=== PATIENT | female | born 1965 | race Hispanic/Latino ===

== ENCOUNTER 2017-04-12 05:56 | Inpatient (IN) | payer OTHER ==
[2017-04-03 09:27] VITALS: BMI 27.4
[2017-04-12] MEDS ORDERED: Sodium Chloride 0.9% 20 ML IV ONE (07:27)
[2017-04-12] MEDS ORDERED: Propofol 10 mg/ml Inj (20 ML) ONE (07:33)
[2017-04-12] MEDS ORDERED: Midazolam 2 MG/2 ML VIAL ONE (07:33)
[2017-04-12] MEDS ORDERED: Bupivacaine 0.5%/Epi 1:200,000 (10 ML SOL) IJ ONE (07:45)
[2017-04-12] MEDS: Bupivacaine-Epi 0.5%-1:200,000 PF Inj IJ ONE ×2 (08:48→10:00)
[2017-04-12] MEDS ORDERED: Clindamycin 600mg/50ml NS 600 MG/50 ML BAG IVPB ONE (09:30)
[2017-04-12] MEDS ORDERED: Rocuronium 10 mg/ml (5 ml) ONE (10:18)
[2017-04-12] MEDS ORDERED: Dexamethasone 4 mg/1 ml ONE (10:38)
[2017-04-12] MEDS ORDERED: Neostigmine Methylsulfate 3mg/3ml Syringe IV ONE (12:58)
[2017-04-12] MEDS ORDERED: Clindamycin 2% Vaginal Cream(40 gm) ONE (13:04)
[2017-04-12] MEDS ORDERED: Morphine 4 MG/ML VIAL IVP PRN (13:22)
[2017-04-12] MEDS: HYDROmorphone 0.5 mg/0.5 ml ISec IVP PRN ×7 (13:26→14:11)
--- NOTE | 2017-04-12 13:30 | PCM.SURG1 ---
Surgeon's Initial Post Op Note - Surgeon's Notes Surgeon: Roselyn Hardy MD Broker Assistant: Thania HERNANDEZ Type of Anesthesia: General Endo, Local Pre-Operative Diagnosis: Symptomatic prolapse uterus. Symptomatic fibroid uterus. Chronic pelvic pain. Urinary incontinence Operative Findings: Enlarged fibroid uterus. Adherent left tube and ovary to pelvic side wall. Stage III uterine prolapse. Normal bladder anatomy, ureters efluxing urine freely Post-Operative Diagnosis: Symptomatic prolapse uterus. Symptomatic fibroid uterus. Chronic pelvic pain. Urinary incontinence Operation Performed: Total robotic hysterectomy Bilateral salpingectomy. Sacrocolpopexy with Mesh. Lysis of adhesions. Stenting of urerters with Icygreen. Cystoscopy diagnostic Specimen/Specimens Removed: uterus, cervix and tubes Estimated Blood Loss: EBL {In ML}: 20 Blood Products Given: N/A Drains Used: No Drains Post-Op Condition: Good Date of Surgery/Procedure: 04/12/17 Time of Surgery/Procedure: 13:31
--- NOTE | 2017-04-12 13:35 | PCM.OP ---
Operative Report - Operative Report Date of Surgery/Procedure: 04/12/17 Time of Surgery/Procedure: 13:32 Surgeon: Roselyn Yuan MD Supplemental Manager: Thania HERNANDEZ Anesthesia/Sedation: Gen with ET tube Pre-Operative Diagnosis: chronic pelvic pain. Symtomatic prolapse uterus. Fibroid uterus. Urinary incontinence Post-Operative Diagnosis: chronic pelvic pain. Symtomatic prolapse uterus. Fibroid uterus. Urinary incontinence. Stage III uterine propase. Pelvic adhesive disaease Indication for Surgery: worsening pelvic pain. worseing prolpase uterus and urinary incontinence Operative Findings: Bulky enlarged fibroid uterus. Stage III uterine prolpase. Urinary incontinence Procedure/Operation Description: Total Robotic hysrterectomy Bilateral salpingectomy. Sacrocolpopexy with mesh insertion. enterolysis and lysis of adhesions. Diagnostic cystosocpy. DESCRIPTION OF OPERATION. This is a 51 years old female with symptomatic complete uterine prolapse, enlarged fibroid uterus, cystocele, rectocele and urinary incontinence. The patient completed an extensive preoperative workup, which included an ultrasound , as well as a Pap smear, chemistry and hematology studies. The patient reported these symptoms and problems as debilitating, and adversely affecting her quality of life. The patient reported this advanced uterine prolapse as debilitating and limiting her daily activities. Following a period of failed conservative management, and patient decision was made to proceed with a more invasive approach to address the above noted problems. A decision was finally made to proceed with a total robotic assisted hysterectomy, bilateral salpingectomy, and vaginal vault suspension in the form of sacrocolpopexy with polypropylene mesh. A detailed description of this robotic procedure was given to the patient, all risks and benefits of the surgical modality was reviewed, printed material was also given to the patient regarding robotic surgery. After a detailed discussion about the pros and cons of using polypropylene mesh graft for sacrocolpopexy, all benefits and risks were reviewed including but not limited to the risk of infection, mesh erosion / extrusion, chronic pain and dyspareunia. In addition, the FDA warning about mesh utilization for prolapse and incontinence surgery was reviewed in details, and specific written consent was obtained. The patient elected to proceed with a sacrocolpopexy today fully understanding the risk associated with utilizing mesh material. Other alternatives were also offered to the patient, she elected to proceed with a mesh sacrocolpopexy despite associated risks. The patient fully understood all the risks and benefits and elected to proceed with this proposed procedure. After proper consent was obtained from the patient was taken to the operating room, proper patient identification was completed. She was placed in dorsal lithotomy position; general anesthesia was induced without difficulty. Her legs were placed in adjustable Sal stirrups. Careful attention was placed to avoid hyperreflexion or hyper-rotation of the lower extremities at the hip or the knee joints. She was prepped and draped appropriately for robotic assisted hysterectomy and sacrocolpopexy. Bernstein catheter was inserted under sterile conditions. A weighted speculum was placed in the vagina, anterior lip of cervix was grasped with a tenaculum, and a V-care uterine manipulator was inserted through the cervix and secured. The weighted speculum and tenaculum were removed from the patient's vagina and attention was turned to the patient's abdomen. Local anesthetic solutions of 0.25% Marcaine with epinephrine were utilized to infiltrate the skin prior to all abdominal skin incisions. A total of 15 mL of 0.25% Marcaine was utilized throughout the procedure. While tenting the abdominal wall up, a Veress needle was inserted at a 45 degree angle. With CO2 insufflation, there was a drop in intraperitoneal pressure confirming correct placement. Insufflation was carried out to approximately 3 liters. A blunt robotic trocar and sleeve was introduced through the camera port in the midline, approximately 3 cm above the umbilicus. Then, using a 30-degree lens robotic scope, initial survey of the patient's abdomen revealed a bulky fibroid uterus and normal-appearing ovaries and severely adherent and distorted fallopian tubes. Multiple loops of bowel adherent to the pelvic sidewall and anterior abdominal wall. Under direct visualization, 3 additional robotic ports were utilized for this procedure. The first one, approximately 5 cm superior to the superior iliac crest on the RIGHT, a second port was approximately 5 cm superior to the superior iliac crest on the LEFT, and a third one was approximately 8 cm RIGHT lateral of the camera port in the midline. All robotic ports were approximately 8 mm in length. An podiatric assistant port was inserted approximately 8 cm LEFT lateral of the camera port, and the versastep trocar and sleeve were introduced in the recommended fashion. A Veress and sheath were first introduced through a 1 cm incision, the Veress was removed and a trocar was introduced through the sheath and secured. Again, excellent visualization was noted confirming intraperitoneal placement. The placement of the trocars was all accomplished under careful and meticulous placement under direct visualization. Following the placement of all trocars, the da Caitlin robotic system was docked in a parallel side docking method without difficulty after the patient was placed in moderate Trendelenburg position and small bowel had been swept away out of the pelvis. The ureter was positively identified. The following instruments were utilized for this procedure: the bipolar cautery device, a monopolar kerwni and finally a ProGrasp. Prior to the start of the hysterectomy, both ureters were visualized along the full course, peristalsis bilaterally. Extensive lysis of peritoneal and omental adhesions and lysis of bowel adhesions was accomplished utilizing sharp and blunt dissection. This was a meticulous and slow process restoring normal anatomy following the lysis of these extensive adhesions. On the patient's right side, the utero-ovarian and the round ligaments were identified cauterized and transected, the broad ligament was divided all the way down to the utero cervical junction bladder flap was then created by transecting the visceroperitoneum over the bladder reflection. In a similar fashion, the left round ligament, utero-ovarian ligament and broad ligament were cauterized sealed and transected, taken down to the level of the cervical uterine junction. Uterine vessels on both sides were sealed and transected. The Uterosacral ligaments were sealed and transected. The monopolar kerwin and PK were utilized to complete the colpotomy incision around the care vaginal ring. Excellent hemostasis was noted. The uterus, cervix and fallopian tubes were delivered transvaginally through the colpotomy incision and sent to pathology for permanent analysis. The colpotomy incision was closed with 2-0 v LOC in a continuous fashion with excellent hemostasis. Attention was then turned to the presacral space. The peritoneum overlying it was tented upward and incised sagittally all the way down to the posterior vaginal wall keeping the right ureter in view at all times. A longitudinal ligament of the sacrum was clearly visualized following this dissection and ready to accept the anchoring of the Y. mesh. The posterior vaginal wall was dissected free from the peritoneum using monopolar kerwin. Two obturators had been placed, one in the vagina, one in the rectum, to assist with this dissection. The dissection was carried out to 5 cm from the vaginal apex / vaginal cuff. A similar dissection was carried out anteriorly with the same technique dissecting the bladder away from the vaginal cuff approximately 5 cm with clearance. Excellent hemostasis was noted. A polypropylene Y mesh then placed into the peritoneal cavity. With the aid of an acid recovery operator in the vagina, and retracting the vaginal apex upward, the posterior short-arm of the Y mesh was anchored with 6 interrupted CV-2 Gunlock-Peter sutures to the posterior vaginal wall. In a similar fashion while retracting the vaginal apex down ash, the anterior short-arm of the Y. mesh was anchored to the anterior vaginal wall with 7 interrupted sutures utilizing CV 2 Gunlock-Peter material. While applying upward tension to lift the vagina into the pelvic cavity to approximate the full length of the vagina in a tension-free fashion and approximation of the length of the long arm of the Y. mesh was marked to be entered onto the longitudinal ligament of the sacrum. 1 interrupted CV-2 Gunlock- Peter suture as well as 2 interrupted 2-0 Prolene sutures were used to anchor the Y. mesh to the longitudinal ligament. The peritoneum was then closed with running 2-0 Monocryl suture. The pelvis was and freed of all clots and debris. Excellent hemostasis was noted. The pelvis and abdomen were irrigated copiously and cleared of all clots and debris. FloSeal as well as Interceed was applied over the incision sites. Excellent hemostasis was once again noted. All robotic and laparoscopic instruments removed under direct visualization. The robotic arms were undocked, and a da Caitlin robotic system was wheeled away from the patient's bedside. Both podiatric assistant and camera ports were closed at the fascial layer utilizing a 0 Vicryl suture material in interrupted fashion. Pneumoperitoneum was reduced and all skin incisions were closed utilizing 4-0 Monocryl in a subcutaneous fashion. Dermabond was applied to all incisions. At the conclusion of this procedure, a diagnostic cystoscopy was completed. The Bernstein catheter was removed; the bladder was distended with approximately 350 cc of normal saline. A 17 [place] 30 cystoscope was introduced through the urethra and a survey of the bladder anatomy was completed. The trigone, and the dome of the bladder appeared normal, both ureteral orifices appeared normal and were efluxing urine freely. The urethra appeared normal. A Bernstein catheter was reinserted. Vaginal packing was inserted to be removed the next morning. Patient emerged from general anesthesia without difficulty, and was taken to recovery room in stable condition. Prior to incision the patient received antibiotics, prior to closure sponge lap and needle counts were correct x2. Estimated Blood Loss: 20 Blood Replaced: none Sponge/Instrument Count: count correct times 2 Drains: none Complications: None Specimen: Uterus, cervix and tubes Discharge & Condition: discharge home as per criteria
[2017-04-12] MEDS ORDERED: Lactated Ringer's 1,000 ML IV ONE (14:30)
[2017-04-12] MEDS: Sodium Chloride 0.9% 1,000 ML IV SCH (18:00)
[2017-04-12] MEDS: Clindamycin 600mg/50ml NS 600 MG/50 ML BAG IVPB SCH (18:30)
[2017-04-12] MEDS: Oxycodone/Acetaminophen 5/325 mg Tab PO PRN (20:38)
[2017-04-13] MEDS: Clindamycin 600mg/50ml NS 600 MG/50 ML BAG IVPB SCH ×2 (02:02→10:03)
[2017-04-13 04:48] VITALS: TEMP 98.5
[2017-04-13] MEDS: Sodium Chloride 0.9% 1,000 ML IV SCH (06:28)
[2017-04-13 07:33] LABS: HEMOGLOBIN 12.3 g/dL (11.0-16.0); MEAN CELL VOLUME 85.5 fL (81.0-99.0); MEAN CORPUSCULAR HEMOGLOBIN 29.7 pg (27.0-31.0); MEAN CORPUSCULAR HGB CONC 34.7 g/dL (33.0-37.0); MEAN PLATELET VOLUME 8.3 fL (7.2-11.7); RBC 4.14 Mil/uL (3.80-5.20); RED CELL DISTRIBUTION WIDTH 13.2 % (11.5-14.5)
[2017-04-13] MEDS: Oxycodone/Acetaminophen 5/325 mg Tab PO PRN ×2 (08:00→14:33)
[2017-04-13 08:06] LABS: BLOOD UREA NITROGEN 10 mg/dL (7-17); CALCIUM 8.5 mg/dl (8.6-10.4); GFR AFRICAN-AMERICAN > 60; GFR NON-AFRICAN AMERICAN > 60
[2017-04-13 08:41] VITALS: BP 114/76; PULSE 79; RESP 18; O2SAT 98
[2017-04-13] MEDS ORDERED: Acetaminophen IV 1,000 MG in Premixed IV 1 EA IV ONE (14:23)
== END 2017-04-13 15:45 | disposition home or self-care (01) | DRG 743 ==
LOC: C.SDS 05:56 → C.9E 13:22 → C.9S 14:03 → C.6T 17:34
PROVIDERS: ADMIT Obstetrics & Gynecology; ATTEND Obstetrics & Gynecology
PROC: 0DNW4ZZ Release Peritoneum, Percutaneous Endoscopic Approach (ICD-10-PCS; 2017-04-12)
PROC: 0UT7FZZ Resection of Bilateral Fallopian Tubes, Via Natural or Artificial Opening With Percutaneous Endoscopic Assistance (ICD-10-PCS; 2017-04-12)
PROC: 0USG8ZZ Reposition Vagina, Via Natural or Artificial Opening Endoscopic (ICD-10-PCS; 2017-04-12)
PROC: 8E0W4CZ Robotic Assisted Procedure of Trunk Region, Percutaneous Endoscopic Approach (ICD-10-PCS; 2017-04-12)
PROC: 0UT9FZZ Resection of Uterus, Via Natural or Artificial Opening With Percutaneous Endoscopic Assistance (ICD-10-PCS; principal; 2017-04-12 07:45)
PROC: 0DNU4ZZ Release Omentum, Percutaneous Endoscopic Approach (ICD-10-PCS; 2017-04-12 07:45)
DX: D25.9 Leiomyoma of uterus, unspecified (principal); G89.29 Other chronic pain; K66.0 Peritoneal adhesions (postprocedural) (postinfection); N84.1 Polyp of cervix uteri; R32 Unspecified urinary incontinence; N81.4 Uterovaginal prolapse, unspecified

== ENCOUNTER 2017-05-17 06:01 | Inpatient (IN) | payer OTHER ==
[2017-04-03 09:27] VITALS: BMI 27.4
[2017-05-17] MEDS ORDERED: Bupivacaine-Epi 0.5%-1:200,000 PF Inj IJ ONE (07:26)
[2017-05-17] MEDS ORDERED: Clindamycin 2% Vaginal Cream(40 gm) ONE (07:54)
[2017-05-17] MEDS ORDERED: Bacitracin 50,000 UNIT in Sodium Chloride 0.9% Irrig 1,000 ML IR SCH (08:00)
[2017-05-17] MEDS ORDERED: Sodium Chloride 0.9% 20 ML IV ONE (08:05)
[2017-05-17] MEDS ORDERED: Propofol 10 mg/ml 1,000 MG/100 ML VIAL ONE (08:17)
[2017-05-17] MEDS ORDERED: Midazolam 2 MG/2 ML VIAL ONE (08:28)
[2017-05-17] MEDS ORDERED: Clindamycin 600mg/50ml NS 600 MG/50 ML BAG IVPB ONE (09:03)
[2017-05-17] MEDS ORDERED: Propofol 10 mg/ml Inj (20 ML) ONE ×2 (09:43→10:40)
[2017-05-17] MEDS ORDERED: ePHEDrine 50 mg/ml Inj ONE (10:05)
[2017-05-17] MEDS ORDERED: Phenylephrine 10 mg/ml Inj ONE (10:31)
--- NOTE | 2017-05-17 11:12 | PCM.OP ---
Operative Report - Operative Report Date of Surgery/Procedure: 05/17/17 Time of Surgery/Procedure: 11:07 Surgeon: Roselyn Yuan MD Associate Director Qa: none Anesthesia/Sedation: Gen with ET Tube Pre-Operative Diagnosis: Urinary incontinence (Mixed). Rectocele. Urethral diverticulum. Chronic pain Post-Operative Diagnosis: Urinary incontinence (Mixed). Rectocele. Urethral diverticulum. Chronic pain Indication for Surgery: worsening urinary incontinence. worsening vaginal and pelvic pain. worsening rectocele Operative Findings: distal urethral diverticuum, small, minimal spening if any as seen by urethroscopy at the start and end of the case. Imbrication of urethral distal diverticulum without excision of urethral wall. posterior repair colporhahpy with perineoorphy. midurethral sling placed distal to the site of urethral imbrication. normal bladder urethral and ureters anatomy as seen by the cystoscopy and urethroscopy. Procedure/Operation Description: Rapair of urethral diverticulum. Midurethral sling. Postrior colporhaphy with perineoorphy. Urethroscopy / Cystoscopy. . Detailed operative report. This is a 51 years old female with chronic pelvic and vaginal pain, symptomatic rectocele, dyspareunia, occasional dysuria , urinary incontinence and severe urgency with nocturia, urinary dribbling, and chronic vaginal discharge along with vaginal and urinary tract infections. The patient recently underwent a robotic-assisted hysterectomy and colposuspension successfully. Following a complete work up a diagnosis of urethral diverticulum , rectocele, and stress urinary incontinence was made. Patient had a period of conservative management with antibiotics with no improvement. Decision made to proceed with excision of diverticulum, posterior colporrhaphy as well as urethropexy if possible utilizing polypropylene mesh sling. Detail and meticulous description and review of the FDA warning regarding polypropylene mesh was reviewed with the patient, the risk of mesh erosion mesh extrusion as well as infection was reviewed in detail, risks was given approximately 10%, the patient understood the associated risks and elected to proceed with the proposed procedure. The patient also understood that if the diverticulum was to be completed with excision of the diverticulum along the urethral neck, no graft material will be placed at this time over the repair. Patient understood the risks of the surgery including urinary retention, incontinence and pain as well as recurrent diverticulum and fistula formation. After general anesthesia was induced, she was placed in dorsal lithotomy position. Legs placed in Derek stirrups, careful attention placed to avoid hyper flexion and hyper rotation of lower extremities. Patient was prepped and draped in sterile fashion for a vaginal procedure. An indwelling urinary catheter was placed. Prior to the diverticulectomy, urethrooscopy / cystoscopy was completed. Bladder anatomy appeared normal, both ureteral orifices were effluxing urine freely, the urethra appeared normal and no opening into the diverticulum was noted on the urethroscopy. However palpation and careful assessment showed a round enlargement of the urethral neck and the vesicourethral junction. After infiltrating the anterior vaginal wall with local anesthetic solution of 0.25% Marcaine, a U-shaped incision was made with the scalpel. The anterior vaginal wall flap was mobilized to expose the diverticulum. Great care was taken to prevent the violation of the periurethral fascia or the diverticulum. A decision was made not to excise to urethra as well as the diverticulum-like structure, the base of the urethra was imbricated along with the periurethral fascia in an interrupted fashion utilizing 3-0 Monocryl suture. The second layer of closure was the vaginal wall, which was closed with a running 2-0 Vicryl suture. The urethral enlargement was reduced significantly without the violation of the urethral lumen or urethral wall. This allowed the completion of the medial urethral sling to be completed. Thalia plication was completed to suspend the urethral neck utilizing periurethral fascia, essentially suspending the urethral neck in a primary fashion. The anterior vaginal wall over the midurethral area was grasped with a pair of Allis clamps and tenting the vaginal wall from the underlying urethra. Local anesthetic solution of 0.25 % Marcaine with epinephrine diluted 1:1 was used to infiltrate the periurethral space. The placement location of the midureteral sling was distal to the imbrication of the urethral enlargement not overlying the site of imbrication. A total of 20 cc was utilized. Using a scalpel, a midurethral vertical incision about 1 cm was made through the vaginal epithelium and periurethral fascia. Careful lateral sharp dissection using Metzenbaum scissors towards the inferior pubic ramus to eventually allow the sling graft to lie flat against the urethra. Next, the sling mesh was loaded onto the needle tip. The needle tip was inserted through one side of the incision towards the medial edge of the obturator foramen approximately 45 degrees of the horizontal plane. Using an arching motion, the needle tip was advanced through pushing the obturator internus muscle. The needle was released from the graft and loaded on the other side of the sling ready for deployment to the contralateral side. Ensuring the sling is flat on the urethra and not twisted, the needle was advanced in an arching motion towards the obturator internus muscle on the opposite site. Attention was readdressed to allow a flat placement with tension- free sling on the midurethra. Following saline irrigation and good hemostasis was noted, the vaginal mucosa was closed with 2-0 Vicryl in a locking fashion. The posterior vaginal wall was incised longitudinally in the midline. Meticulous sharp and blunt dissection bilaterally was completed the full-thickness vaginal mucosa from the rectovaginal fascia, exposing the posterior vaginal wall defect. Multiple 20 Vicryls and suture material was utilized in interrupted fashion to imbricate the rectovaginal fascia in the midline, thereby reducing the posterior defect, without any undue tension on the tissue. Excess vaginal mucosa was excised and sent to pathology. Perineorrhaphy was completed reestablishing a perineal body approximately 3 cm in length utilizing multiple 2-0 Vicryl suture material. The vaginal mucosa was closed with 2-0 Vicryl in a continuous locking fashion, the skin over the perineal body was closed with 3-0 Vicryl and the subcutaneous fashion. Excellent hemostasis noted. During the closure of the posterior vaginal wall defect, the posterior fourchette was reapproximated utilizing multiple 2-0 Vicryl suture material. The closure of the vaginal wall was carried in a way to reduce the diameter of the vaginal opening. Prior to the repair patient had relaxed vaginal orifice approximately 3-4 fingerbreadths, following the repair it was reduced to 2 fingerbreadths. Due to the complexity of this procedure, a diagnostic cystoscopy was completed. The Bernstein catheter was removed, the bladder was distended with approximately 350 cc of normal saline. A 30 degree cystoscope was introduced and a survey of the bladder anatomy was completed. The base, and the dome of the bladder appeared normal, both ureteral orifices appeared normal and were efluxing urine freely. The urethra appeared normal. A Bernstein catheter was reinserted. Vaginal packing was inserted to be removed the next morning. Patient emerged from general anesthesia without difficulty, and was taken to recovery room in stable condition. Prior to incision the patient received antibiotics, prior to closure sponge lap and needle counts were correct x2. An antibiotic-soaked vaginal pack was inserted and place in the vaginal office to be removed the next morning. The patient was taken to recovery room in stable condition. Estimated Blood Loss: 20 Blood Replaced: none Sponge/Instrument Count: count correct times 2 Drains: none Complications: none Specimen: vaginal wall mucosa Discharge & Condition: discharge home with criteria
[2017-05-17] MEDS ORDERED: Morphine 4 MG/ML VIAL IVP PRN (11:14)
[2017-05-17] MEDS ORDERED: HYDROmorphone 0.5 mg/0.5 ml ISec IVP PRN (11:26)
[2017-05-17] MEDS ORDERED: Lactated Ringer's 1,000 ML IV ONE (11:56)
[2017-05-17] MEDS ORDERED: Oxycodone/Acetaminophen 5/325 mg Tab PO PRN (12:37)
[2017-05-17] MEDS ORDERED: Sodium Chloride 0.9% 1,000 ML IV SCH (12:45)
[2017-05-17] MEDS: Clindamycin 600mg/50ml D5W 600 MG/50 ML VIAL IVPB SCH ×2 (14:55→23:10)
[2017-05-17] MEDS ORDERED: Clindamycin 600mg/50ml NS 600 MG/50 ML BAG IVPB SCH (23:00)
[2017-05-18 00:29] VITALS: O2SAT 97
[2017-05-18 08:06] VITALS: BP 94/57; PULSE 66; RESP 18; TEMP 97.8
[2017-05-18 08:13] LABS: HEMOGLOBIN 11.5 g/dL (11.0-16.0); MEAN CELL VOLUME 85.3 fL (81.0-99.0); MEAN PLATELET VOLUME 8.3 fL (7.2-11.7); RBC 3.96 Mil/uL (3.80-5.20); RED CELL DISTRIBUTION WIDTH 13.1 % (11.5-14.5); WHITE BLOOD COUNT 11.4 K/uL (4.8-10.8)
[2017-05-18 08:23] LABS: BLOOD UREA NITROGEN 11 mg/dL (7-17); CALCIUM 8.7 mg/dl (8.6-10.4); GFR AFRICAN-AMERICAN > 60; GFR NON-AFRICAN AMERICAN > 60
[2017-05-18] MEDS ORDERED: Influenza Vaccine 60 mcg/0.5 mL SYR (4YR UP) IM ONE (10:45)
== END 2017-05-18 12:30 | disposition home or self-care (01) | DRG 748 ==
LOC: C.SDS 06:01 → C.4M 11:14
PROVIDERS: ADMIT Obstetrics & Gynecology; ATTEND Obstetrics & Gynecology
PROC: 0TSD4ZZ Reposition Urethra, Percutaneous Endoscopic Approach (ICD-10-PCS; 2017-05-17)
PROC: 0TJB8ZZ Inspection of Bladder, Via Natural or Artificial Opening Endoscopic (ICD-10-PCS; 2017-05-17)
PROC: 0JUC3JZ Supplement of Pelvic Region Subcutaneous Tissue and Fascia with Synthetic Substitute, Percutaneous Approach (ICD-10-PCS; principal; 2017-05-17 07:45)
DX: N81.6 Rectocele (principal); N36.1 Urethral diverticulum; N36.2 Urethral caruncle; N39.46 Mixed incontinence

== ENCOUNTER 2017-09-12 08:38 | Day surgery (SDC) | payer OTHER ==
[2017-04-03 09:27] VITALS: BMI 27.4
[2017-09-12] MEDS ORDERED: Bacitracin 50,000 UNIT in Sodium Chloride 0.9% Irrig 1,000 ML IR SCH (09:40)
[2017-09-12] MEDS ORDERED: Clindamycin 600mg/50ml NS 600 MG/50 ML BAG IVPB ONE (10:17)
[2017-09-12] MEDS ORDERED: Methylene Blue 10 mg/mL(10ml) IV ONE (10:17)
[2017-09-12] MEDS ORDERED: Clindamycin 2% Vaginal Cream(40 gm) ONE (10:18)
[2017-09-12] MEDS ORDERED: Propofol 10 mg/ml 1,000 MG/100 ML VIAL ONE (11:08)
[2017-09-12] MEDS ORDERED: Midazolam 2 MG/2 ML VIAL ONE (11:09)
[2017-09-12] MEDS ORDERED: Propofol 10 mg/ml Inj (20 ML) ONE (11:10)
[2017-09-12] MEDS ORDERED: metroNIDAZOLE IV 500 mg/100 ml 500 MG/100 ML BAG ONE (11:19)
[2017-09-12] MEDS ORDERED: Bupivacaine-Epi 0.5%-1:200,000 PF Inj ONE (11:25)
[2017-09-12] MEDS ORDERED: Sodium Chloride 0.9% 40 ML IV ONE (11:27)
[2017-09-12] MEDS ORDERED: Oxycodone/Acetaminophen 5/325 mg Tab PO PRN (12:05)
--- NOTE | 2017-09-12 12:05 | PCM.OP ---
Operative Report - Operative Report Date of Surgery/Procedure: 09/12/17 Time of Surgery/Procedure: 12:02 Surgeon: Roselyn Hardy MD Scout Leaser: Thania HERNANDEZ Anesthesia/Sedation: Gen with LMA Pre-Operative Diagnosis: Chronic pelvic pain. Dysparunia. Vaginal pain Post-Operative Diagnosis: Chronic pelvic pain. Dysparunia. Vaginal pain Indication for Surgery: vaginal pain and dysparunia following sling procedure and TRH Operative Findings: Tight tension on left lateral side of urethra along sling path. No erosion of mesh noted. Normal cystoscopy at the end of the procedure Procedure/Operation Description: Excision of vaginal mesh. Release of midurethral sling. Diagnostic cystoscopy Estimated Blood Loss: 5 Blood Replaced: none Sponge/Instrument Count: count correct times 2 Drains: none Complications: none Specimen: mesh Discharge & Condition: as per criteria
[2017-09-12] MEDS ORDERED: Lactated Ringer's 1,000 ML IV ONE (12:07)
[2017-09-12] MEDS ORDERED: HYDROmorphone 0.5 mg/0.5 ml ISec IVP PRN (12:09)
[2017-09-12] MEDS ORDERED: Sodium Chloride 0.9% 1,000 ML IV SCH (12:15)
[2017-09-12 14:32] VITALS: RESP 16; O2SAT 100
[2017-09-12 15:06] VITALS: BP 118/70; PULSE 59; TEMP 97.6
== END 2017-09-12 15:00 | disposition home or self-care (01) ==
LOC: C.SDS 08:38
PROVIDERS: ATTEND Obstetrics & Gynecology
DX: T83.89XA Other specified complication of genitourinary prosthetic devices, implants and grafts, initial encounter (principal); N30.01 Acute cystitis with hematuria; M62.89 Other specified disorders of muscle; G89.29 Other chronic pain
CPT/HCPCS: 52000; 57287; 88305; J1885; J2250; J2704; J3010; J7120

== ENCOUNTER 2018-01-17 06:04 | Day surgery (SDC) | payer OTHER ==
[2018-01-13 08:00] VITALS: BMI 28.3
[2018-01-17] MEDS ORDERED: Propofol 10 mg/ml 1,000 MG/100 ML VIAL ONE (07:52)
[2018-01-17] MEDS ORDERED: Midazolam 2 MG/2 ML VIAL ONE (08:03)
[2018-01-17] MEDS ORDERED: Propofol 10 mg/ml Inj (20 ML) ONE (08:03)
[2018-01-17] MEDS ORDERED: Bacitracin 150,000 UNIT in Sodium Chloride 0.9% Irrig 3,000 ML IR SCH (08:10)
[2018-01-17] MEDS ORDERED: Clindamycin 2% Vaginal Cream(40 gm) ONE (08:17)
[2018-01-17] MEDS ORDERED: Clindamycin 600mg/50ml NS 600 MG/50 ML BAG IVPB ONE (08:17)
[2018-01-17] MEDS ORDERED: Bacitracin 50,000 UNIT in Sodium Chloride 0.9% Irrig 1,000 ML IR SCH (08:30)
[2018-01-17] MEDS ORDERED: Bupivacaine 0.25% 20 ML INJ IJ ONE (09:37)
[2018-01-17] MEDS ORDERED: Ciprofloxacin 400mg/200ml D5W 400 MG/200 ML BAG IVPB ONE (09:54)
--- NOTE | 2018-01-17 10:17 | PCM.OP ---
Operative Report - Operative Report Date of Surgery/Procedure: 01/17/18 Time of Surgery/Procedure: 10:12 Surgeon: Roselyn Yuan MD Rouge Miller: none Anesthesia/Sedation: Gen with ET tube Pre-Operative Diagnosis: vaginal pain, chronic discharge, abnormal vaginal bleeding Post-Operative Diagnosis: Same, mesh erosion Indication for Surgery: chronic vaginal pain, abnormal vaginal bleeding, chronic vaginal discharge following sacrocolpopexy and midurethral sling. Operative Findings: adequate epical vaginal support following SCP and sling. Incisions are closed dry and intact. Left side of vaginal cuff with dimple at corner no visible mesh noted. The incision was opened, mesh exposed and excised and apex released during closure of cuff. Similarly, the left side of the mid-urethral single incision sling was released in a similar way to address complaints of tension and pulling on the left side. Procedure/Operation Description: 1. Removal of SCP mesh and revision of cuff 2. removal of mid-urethral sling and release of sling mesh 3. diagnostic cystoscopy Detailed operative report PT is a 52 y/o female with prior TRH and sacrocolpopexy and midurethral sling in the past year. Patient reports significant improvement with prolapse symptoms and urinary incontinence. Since the last procedure, she is complaining of chronic discharge and vaginal pain incluidng dysparunia mainly on the left side. A complete work up which included imaging study and cultures showed intact incisions and normal pelvic anatomy c/w post hysterectomy. She failed conservative management and decision made to proceed with exam under anesthesia and possible revision and excision of vaginal mesh. After proper consent, she was taken to the OR, Gen anesthesia induced and LMA used. She was prepped and draped for a vaginal procedure. Estimated Blood Loss: 10 ml Blood Replaced: none Sponge/Instrument Count: count correct times 2 Drains: none Complications: none Specimen: vaginal mucosa and mesh Discharge & Condition: may discharge home today once she meets criteria
[2018-01-17] MEDS ORDERED: Morphine 4 MG/ML VIAL IVP PRN (10:26)
[2018-01-17] MEDS ORDERED: Sodium Chloride 0.9% 1,000 ML IV SCH (10:30)
[2018-01-17] MEDS ORDERED: HYDROmorphone 0.5 mg/0.5 ml ISec IVP PRN (10:58)
[2018-01-17 11:56] VITALS: RESP 18
[2018-01-17 12:58] VITALS: BP 113/64; PULSE 64; TEMP 97.7; O2SAT 99
== END 2018-01-17 12:40 | disposition home or self-care (01) ==
LOC: C.SDS 06:04
PROVIDERS: ATTEND Obstetrics & Gynecology
DX: T83.711A Erosion of implanted vaginal mesh to surrounding organ or tissue, initial encounter (principal); R10.2 Pelvic and perineal pain; Y76.3 Surgical instruments, materials and obstetric and gynecological devices (including sutures) associated with adverse incidents; N93.9 Abnormal uterine and vaginal bleeding, unspecified; N39.3 Stress incontinence (female) (male)
CPT/HCPCS: 52000; 57287; 57295; 88305; J0744; J1100; J1885; J2250; J2270; J2405; J2704; J3010

== ENCOUNTER 2018-02-14 08:41 | Emergency (ER) | payer OTHER ==
[2018-02-14 08:46] VITALS: BMI 30.2
[2018-02-14 09:22] LABS: BASO % 0.8 % (0.0-2.0); EOS # 0.1 K/uL (0.0-0.7); EOS % 2.8 % (0.0-4.0); HEMOGLOBIN 13.6 g/dL (11.0-16.0); LYMPH % 43.8 % (20.0-40.0); MEAN CELL VOLUME 85.7 fL (81.0-99.0); MEAN CORPUSCULAR HEMOGLOBIN 29.2 pg (27.0-31.0); MEAN PLATELET VOLUME 7.8 fL (7.2-11.7); MONO # 0.3 K/uL (0.0-0.8); MONO % 6.4 % (0.0-10.0); NEUT # 2.1 K/uL (1.8-7.0); NEUT % 46.2 % (50.0-75.0); NRBC % 0.1 % (0.0-2.0); RBC 4.65 Mil/uL (3.80-5.20); RED CELL DISTRIBUTION WIDTH 13.3 % (11.5-14.5); WHITE BLOOD COUNT 4.7 K/uL (4.8-10.8)
[2018-02-14 09:39] LABS: SQUAMOUS EPITHIAL 1 /hpf (0-5); URINE BILIRUBIN NEGATIVE (NEGATIVE); URINE BLOOD NEGATIVE (NEGATIVE); URINE CLARITY Clear (Clear); URINE COLOR Yellow (YELLOW); URINE GLUCOSE (UA) NORMAL (Normal); URINE LEUKOCYTE ESTERASE TRACE Leu/uL (Negative); URINE PROTEIN NEGATIVE (NEGATIVE); URINE UROBILINOGEN NORMAL mg/dL (0.2-1.0)
[2018-02-14 09:43] LABS: ALB/GLOB RATIO 1.6 (1.0-2.1); ALBUMIN 4.6 g/dL (3.5-5.0); ALT/SGPT 46 U/L (9-52); AST/SGOT 42 U/L (14-36); BLOOD UREA NITROGEN 15 mg/dL (7-17); CALCIUM 9.5 mg/dl (8.6-10.4); GFR NON-AFRICAN AMERICAN > 60
--- NOTE | 2018-02-14 10:11 | C.PDOC ---
History Of Present Illness 52 years old female with past surgical Hx of hysterctomy with mesh(March 2017) , presents to ED for complaints of rectal pain associated with bright red blood on stool with bowel movement that began 2 days ago. Patient also states noticing a "blood clot on the stool today which prompted the ED visit." Patient states "pain feels like something is pulling." Denies SOB, chest pain, medical problems,or use of blood thinner medications. Patient also complaints of left sided abdominal pain. PMD not affiliated. 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 Roselyn Hardy MD Post Framer: * Dr. Cramer Time Seen by Provider: 02/14/18 09:45 Chief Complaint (Nursing): GI Problem History Per: Patient History/Exam Limitations: no limitations Onset/Duration Of Symptoms: Days Current Symptoms Are (Timing): Still Present Number Of Bleeding Episodes: Unknown Amount of Blood Loss: Small Associated Symptoms: Rectal Bleeding Modifying Factors: None Recent travel outside of the [place]: No Past Medical History Reviewed: Historical Data, Nursing Documentation, Vital Signs Vital Signs: Last Vital Signs Temp 98.1 F 02/14/18 08:46 Pulse 85 02/14/18 08:46 Resp 18 02/14/18 08:46 BP 143/87 02/14/18 08:46 Pulse Ox 97 02/14/18 08:46 - Medical History PMH: No Chronic Diseases Surgical History: Appendectomy, Endoscopy - [facility] (04/12/17) (04/12/17) INSPECTION OF BLADDER, ENDO (05/17/17) RELEASE PERITONEUM, PERCUTANEOUS ENDOSCOPIC APPROACH (04/12/17) REPOSITION URETHRA, PERCUTANEOUS ENDOSCOPIC APPROACH (05/17/17) RESECTION OF BI FALLOPIAN TUBE, VIA OPENING W [facility] ENDO (04/12/17) RESECTION OF UTERUS, VIA OPENING W [facility] ENDO (04/12/17) ROBOTIC ASSISTED PROCEDURE OF TRUNK, [facility] ENDO APPROACH (04/12/17) SUPPLEMENT PELVIC SUBCU/FASCIA W SYNTH SUB, [facility] (05/17/17) Family History: States: Unknown Family Hx - Social History Hx Tobacco Use: No Hx Alcohol Use: Yes Hx Substance Use: No - Immunization History Hx Tetanus Toxoid Vaccination: No Hx Influenza Vaccination: No Hx Pneumococcal Vaccination: No Review Of Systems Cardiovascular: Negative for: Chest Pain Respiratory: Negative for: Shortness of Breath Physical Exam - Physical Exam Additional Physical Exam Comments: Constitutional: No acute distress. Head: Normocephalic. Atraumatic. Eyes: PERRL. ENT: Moist mucous membranes. Neck: Supple. Cardiovascular: Regular rate. Radial pulse 2+ bilaterally. Chest: No tenderness. Respiratory: Clear to auscultation bilaterally. GI: Soft. Nontender. Nondistended. Back: No CVA tenderness. Musculoskeletal: No tenderness or swelling of extremities. Skin: No rash. Neurologic: Alert, no focal deficit. 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 No Hemorrhoids. No active bleeding. FOBT negative. ED Course And Treatment - Laboratory Results Result Diagrams: 02/14/18 09:18 02/14/18 09:18 O2 Sat by Pulse Oximetry: 97 (RA) Pulse Ox Interpretation: Normal - CT Scan/US Abdomen/Pelvis CT Other Rad Studies (CT/US): Read By Radiologist, Radiology Report Reviewed CT/US Interpretation: Date of service: 02/14/2018. PROCEDURE: CT Abdomen and Pelvis with contrast. HISTORY: abd pain, rectal bleeding. COMPARISON: CT pelvis without contrast performed 01/10/18. TECHNIQUE: Contrast dose: 100 mL Visipaque 320 IV. Radiation dose: Total exam DLP = 989.82 mGy-cm. This CT exam was performed using one or more of the following dose reduction techniques: Automated exposure control, adjustment of the mA and/or kV according to patient size, and/or use of iterative reconstruction technique. FINDINGS: LOWER THORAX: No visible consolidation, pleural effusion, or pneumothorax. LIVER: 12 mm hypodense mass measures approximately 10 HU, inferior right hepatic lobe. GALLBLADDER AND BILE DUCTS: Unremarkable. PANCREAS: Too small to characterize 4 mm pancreatic body/tail junction hypodensity; possibly tiny cyst/IPMN. SPLEEN: Unremarkable. ADRENALS: Unremarkable. KIDNEYS AND URETERS: The kidneys enhance symmetrically. No hydronephrosis or obstructing calculus identified. VASCULATURE: No aortic aneurysm. Atherosclerotic calcifications present. BOWEL: Nondistended stomach limits evaluation. Apparent gastric wall thickening; correlate clinically for possibility of gastritis. Lack of oral contrast limits evaluation for bowel pathology. Bowel loops appear within normal limits of caliber without evidence of obstruction. Moderate constipation. APPENDIX: The appendix appears within normal limits of caliber. No secondary signs of acute appendicitis. PERITONEUM: No significant free fluid. No definite free air. LYMPH NODES: No bulky adenopathy identified. BLADDER: Unremarkable. REPRODUCTIVE: Uterus is absent consistent with hysterectomy. BONES: No acute osseous abnormality is detected. OTHER FINDINGS: None. IMPRESSION: Nondistended stomach limits evaluation. Apparent gastric wall thickening; correlate clinically for possibility of gastritis. Moderate constipation. Too small to characterize 4 mm pancreatic body/tail junction hypodensity; possibly tiny cysts/IPMN. 12 mm hypodense hepatic lobe mass, inferior right hepatic lobe. This finding measures approximately 10 HU, consistent with a cyst. Medical Decision Making Medical Decision Making: Plan: * Blood bank * CT Abdomen&Pelvis * Blood work * Urine Culture * Urinalysis Discussed case with Dr. Maldonado's GI fellow who discussed with Dr. Maldonado, recommending discharge and f/u in office. No active bleeding now, Hb normal, vitals normal. Disposition - Disposition Referrals: Jono Maldonado MD [Staff Provider] - Disposition: HOME/ ROUTINE Disposition Time: 12:09 Condition: STABLE Additional Instructions: FINDINGS: LOWER THORAX: No visible consolidation, pleural effusion, or pneumothorax. LIVER: 12 mm hypodense mass measures approximately 10 HU, inferior right hepatic lobe. GALLBLADDER AND BILE DUCTS: Unremarkable. PANCREAS: Too small to characterize 4 mm pancreatic body/tail junction hypodensity; possibly tiny cyst/IPMN. SPLEEN: Unremarkable. ADRENALS: Unremarkable. KIDNEYS AND URETERS: The kidneys enhance symmetrically. No hydronephrosis or obstructing calculus identified. VASCULATURE: No aortic aneurysm. Atherosclerotic calcifications present. BOWEL: Nondistended stomach limits evaluation. Apparent gastric wall thickening; correlate clinically for possibility of gastritis. Lack of oral contrast limits evaluation for bowel pathology. Bowel loops appear within normal limits of caliber without evidence of obstruction. Moderate constipation. APPENDIX: The appendix appears within normal limits of caliber. No secondary signs of acute appendicitis. PERITONEUM: No significant free fluid. No definite free air. LYMPH NODES: No bulky adenopathy identified. BLADDER: Unremarkable. REPRODUCTIVE: Uterus is absent consistent with hysterectomy. BONES: No acute osseous abnormality is detected. OTHER FINDINGS: None. IMPRESSION: Nondistended stomach limits evaluation. Apparent gastric wall thickening; correlate clinically for possibility of gastritis. Moderate constipation. Too small to characterize 4 mm pancreatic body/tail junction hypodensity; po ssibly tiny cysts/IPMN. 12 mm hypodense hepatic lobe mass, inferior right hepatic lobe. This finding measures approximately 10 HU, consistent with a cyst. Instructions: Bloody Stools, Adult (DC) Forms: [facility] (Kiswahili), Work Excuse - Clinical Impression Clinical Impression: Rectal bleed - Scribe Statement The provider has reviewed the documentation as recorded by the Ana Luisa Jose All medical record entries made by the Alexisibamanda were at my direction and personally dictated by me. I have reviewed the chart and agree that the record accurately reflects my personal performance of the history, physical exam, medical decision making, and the department course for this patient. I have also personally directed, reviewed, and agree with the discharge instructions and disposition.
[2018-02-14 10:36] LABS: LIPASE 84 U/L (23-300)
[2018-02-14 10:37] LABS: INR 1.1; PROTHROMBIN TIME 11.6 SECONDS (9.7-12.2)
[2018-02-14 11:09] VITALS: RESP 16
[2018-02-14] MEDS ORDERED: Iodixanol 320 mg/ml 150 ml Bottle IV ONE (11:16)
--- NOTE | 2018-02-14 12:07 | CT ---
Date of service: 02/14/2018 PROCEDURE: CT Abdomen and Pelvis with contrast HISTORY: abd pain, rectal bleeding COMPARISON: CT pelvis without contrast performed 01/10/18 TECHNIQUE: Contrast dose: 100 mL Visipaque 320 IV Radiation dose: Total exam DLP = 989.82 mGy-cm. This CT exam was performed using one or more of the following dose reduction techniques: Automated exposure control, adjustment of the mA and/or kV according to patient size, and/or use of iterative reconstruction technique. FINDINGS: LOWER THORAX: No visible consolidation, pleural effusion, or pneumothorax. LIVER: 12 mm hypodense mass measures approximately 10 HU, inferior right hepatic lobe. GALLBLADDER AND BILE DUCTS: Unremarkable. PANCREAS: Too small to characterize 4 mm pancreatic body/tail junction hypodensity; possibly tiny cyst/IPMN. SPLEEN: Unremarkable. ADRENALS: Unremarkable. KIDNEYS AND URETERS: The kidneys enhance symmetrically. No hydronephrosis or obstructing calculus identified. VASCULATURE: No aortic aneurysm. Atherosclerotic calcifications present. BOWEL: Nondistended stomach limits evaluation. Apparent gastric wall thickening; correlate clinically for possibility of gastritis. Lack of oral contrast limits evaluation for bowel pathology. Bowel loops appear within normal limits of caliber without evidence of obstruction. Moderate constipation. APPENDIX: The appendix appears within normal limits of caliber. No secondary signs of acute appendicitis. PERITONEUM: No significant free fluid. No definite free air. LYMPH NODES: No bulky adenopathy identified. BLADDER: Unremarkable. REPRODUCTIVE: Uterus is absent consistent with hysterectomy. BONES: No acute osseous abnormality is detected. OTHER FINDINGS: None. IMPRESSION: Nondistended stomach limits evaluation. Apparent gastric wall thickening; correlate clinically for possibility of gastritis. Moderate constipation. Too small to characterize 4 mm pancreatic body/tail junction hypodensity; possibly tiny cysts/IPMN. 12 mm hypodense hepatic lobe mass, inferior right hepatic lobe. This finding measures approximately 10 HU, consistent with a cyst.
[2018-02-14 13:25] VITALS: BP 110/77; PULSE 80; TEMP 98.7
[2018-02-14 13:27] VITALS: O2SAT 97
== END 2018-02-14 13:44 | disposition home or self-care (01) ==
LOC: C.ER 08:41
DX: K62.5 Hemorrhage of anus and rectum (principal)
CPT/HCPCS: 74177; 80053; 81001; 83690; 84484; 85025; 85610; 85730; 86850; 86900; 87086; 99285; Q9967

== ENCOUNTER 2018-04-09 08:40 | Outpatient (CLI) | payer OTHER | END 2018-04-09 08:41 | disposition home or self-care (01) | LOC: C.LAB 08:40 | DX: N39.0 Urinary tract infection, site not specified (principal) ==

== ENCOUNTER 2018-04-17 07:55 | Outpatient (CLI) | payer OTHER | END 2018-04-17 07:56 | disposition home or self-care (01) | LOC: C.LAB 07:55 ==

== ENCOUNTER 2018-06-04 11:31 | Outpatient (CLI) | payer OTHER | END 2018-06-04 11:32 | disposition home or self-care (01) | LOC: C.LAB 11:31 ==